=== PATIENT | female | born 1935 | race Caucasian/White ===

== ENCOUNTER → 2017-07-20 13:46 | Outpatient (CLI) | payer MEDICARE, BC ==
[2010-04-21 13:20] VITALS: BMI 20.7
== END | disposition home or self-care (01) ==
LOC: D.MRI 12:30
DX: R41.82 Altered mental status, unspecified (principal)

== ENCOUNTER → 2018-04-15 16:22 | Outpatient (CLI) | payer MEDICARE, BC ==
[2010-04-21 13:20] VITALS: BMI 20.7
== END | disposition home or self-care (01) ==
LOC: D.MRI 16:22
DX: M54.16 Radiculopathy, lumbar region (principal)

== ENCOUNTER 2018-10-25 10:39 | Emergency (ER) | payer MEDICARE, BC ==
[~2018-10-25] VITALS: Ht 154.9 cm; Wt 47.3 kg
[2018-10-25 10:42] VITALS: Ht 154.9 cm; Wt 47.3 kg
[2018-10-25] MEDS ORDERED: PROVENTIL/2.5 MG/3 M INH (10:46)
[2018-10-25] MEDS ORDERED: COMBIGAN OPHT DR5 ML EACH EYE (10:46)
[2018-10-25] MEDS ORDERED: BENADRYL25 MG PO (10:47)
[2018-10-25] MEDS ORDERED: LANOXIN125 MCG (10:47)
[2018-10-25] MEDS ORDERED: ADVAIR HFA 230-12 GM INH (10:47)
[2018-10-25] MEDS ORDERED: FOLIC ACID0.8 MG PO (10:48)
[2018-10-25] MEDS ORDERED: ISOSORBIDE DINI30 MG PO (10:48)
[2018-10-25] MEDS ORDERED: NITROSTAT0.4 MG SL (10:48)
[2018-10-25] MEDS ORDERED: SINGULAIR10 MG (10:48)
[2018-10-25] MEDS ORDERED: PRINIVIL20 MG (10:48)
[2018-10-25] MEDS ORDERED: PROTONIX40 MG PO (10:49)
[2018-10-25] MEDS ORDERED: SPIRIVA18 MCG INH (10:49)
[2018-10-25] MEDS ORDERED: VERELAN180 MG PO (10:49)
[2018-10-25] MEDS ORDERED: AMBIEN10 MG PO (10:49)
[2018-10-25 11:15] LABS: BASOPHILS 0.2 % (0-2); EOSINOPHILS 0 % (0-7); HEMATOCRIT 34.9 % (36.0-48.0); HEMOGLOBIN 11.5 g/dL (12-16); IMMATURE GRANULOCYTES 0.1 % (0-5); LYMPHOCYTES 12.9 % (15-50); MCH 29.5 pg (26.0-34.0); MCV 89.5 fL (80.0-100.0); MEAN PLATELET VOLUME 9.5 fL (7.4-10.4); MONOCYTES 6.9 % (2-11); NEUTROPHILS 79.9 % (40-80); PLATELET COUNT 222 10x3/uL (130-400); RDW 12.8 % (11.5-14.5); WBC 11.5 10x3/uL (4.8-10.8)
[2018-10-25 11:29] LABS: ALBUMIN 3.7 g/dL (3.4-5.0); ALKALINE PHOSPHATASE 32 U/L (46-116); ALT (SGPT) 10 U/L (10-68); BILIRUBIN - TOTAL 0.87 mg/dL (0.2-1.3); CALC OSMOLALITY 271 mosm/kg (275-300); CALCIUM 8.9 mg/dL (8.5-10.1); CARBON DIOXIDE 28.4 mmol/L (21.0-32.0); CHLORIDE - SERUM 98 mmol/L (98-107); CREATININE - SERUM 0.8 mg/dL (0.6-1.3); GLUCOSE 137 mg/dL (74-106); POTASSIUM - SERUM 3.8 mmol/L (3.5-5.1); PROTEIN - SERUM 7.7 g/dL (6.4-8.2); SODIUM 135 mmol/L (136-145); UREA NITROGEN 13 mg/dL (7-18); eGFR NON AFRICAN AMERICAN 73 mL/min (90-120)
[2018-10-25 11:35] LABS: AMYLASE - SERUM 103 U/L (25-115); LIPASE 291 U/L (73-393)
[2018-10-25 11:41] LABS: TROPONIN-I < 0.017 ng/mL (0.000-0.060)
[2018-10-25 16:16] LABS: APPEARANCE HAZY (CLEAR); BILIRUBIN NEGATIVE (NEGATIVE); COLOR YELLOW (YELLOW); GLUCOSE NEGATIVE (NEGATIVE); KETONE NEGATIVE (NEGATIVE); NITRITE POSITIVE (NEGATIVE); PROTEIN TRACE mg/dL (NEGATIVE); UROBILINOGEN NORMAL (NORMAL)
[2018-10-25 16:17] LABS: BACTERIA MANY /hpf (NONE SEEN); EPITHELIAL CELLS OCC /hpf (0-5); RED CELLS - URINE 0-5 /hpf (0-5); WHITE CELLS - URINE 25-50 /hpf (0-5)
[2018-10-25] MEDS ORDERED: MACROBID100 MG PO (16:30)
[2018-10-25] MEDS ORDERED: ZOFRAN8 MG PO (16:30)
[2018-10-25] MEDS ORDERED: KEFLEX500 MG PO (16:31)
[2018-10-25 17:33] VITALS: BP 106/74
== END 2018-10-25 17:34 | disposition home or self-care (01) ==
LOC: D.ER 10:39
PROVIDERS: Family Medicine
DX: R11.2 Nausea with vomiting, unspecified (principal); I25.10 Atherosclerotic heart disease of native coronary artery without angina pectoris; I10 Essential (primary) hypertension; N39.0 Urinary tract infection, site not specified; J44.9 Chronic obstructive pulmonary disease, unspecified; R00.1 Bradycardia, unspecified

== ENCOUNTER → 2019-03-05 08:03 | Outpatient (CLI) | payer MEDICARE, BC ==
[2018-10-25 10:42] VITALS: BMI 19.7
[~2019-03-05 08:03] MED LIST: ADVAIR HFA 230-12 GM INH; AMBIEN10 MG PO; BENADRYL25 MG PO; COMBIGAN OPHT DR5 ML EACH EYE; FOLIC ACID0.8 MG PO; ISOSORBIDE DINI30 MG PO; KEFLEX500 MG PO; LANOXIN125 MCG; MACROBID100 MG PO; NITROSTAT0.4 MG SL; PRINIVIL20 MG; PROTONIX40 MG PO; PROVENTIL/2.5 MG/3 M INH; SINGULAIR10 MG; SPIRIVA18 MCG INH; VERELAN180 MG PO; ZOFRAN8 MG PO
== END | disposition home or self-care (01) ==
LOC: D.RAD 08:03
PROVIDERS: ATTEND Internal Medicine Gastroenterology
DX: R10.10 Upper abdominal pain, unspecified (principal); R11.0 Nausea; R63.4 Abnormal weight loss

== ENCOUNTER 2020-11-23 10:00 | Inpatient (IN) | payer MEDICARE, BC ==
[~2020-11-23 10:00] MED LIST changes: +LEVOFLOXACIN500 MG PO; +PEPCID40 MG PO; +PHENERGAN25 M1 PO
[2020-11-23] MEDS ORDERED: PRAVASTATIN SOD10 MG PO (17:02)
[2020-11-23] MEDS ORDERED: BAYER CHEWABLE81 MG PO (17:03)
[2020-11-23] MEDS ORDERED: ISOSORBIDE MONO30 M1 PO (17:03)
[2020-11-23] MEDS ORDERED: MAG-OX 400 MG400 MG PO (17:03)
[2020-11-23] MEDS ORDERED: ULTRAM50 MG PO (17:04)
[2020-11-23] MEDS ORDERED: BENADRYL25 MG PO (17:04)
--- NOTE | 2020-11-23 18:32 | NUR ---
PT ADMITTED TO [facility] FOR AGGRESSION WITH FAMILY/ CAREGIVER. PT WAS COMBATIVE WITH FAMILY, SPITTING, THROWING ITEMS, YELLING, CUSSING AT CAREGIVERS, AND REFUSING MEDS. UPON ARRIVAL TO UNIT PT APPEARED ANXIOUS, DISRESPECTFUL, AND DEMANDING TO STAFF AT THIS TIME. PT BECOMES VERY TEARFUL WITH REDIRECTION PER STAFF. PT IS A DNR PER [facility]. CONSENT REC'D FROM [facility] CONTACT # [phone]. PT PCP IS DR. SNOWDEN. [facility]. PT WEARS OXYGEN AT 2L VIA N/C CONTINUOUSLY. FALL PRECAUTIONS IN PLACE.
[2020-11-23 19:47] VITALS: BP 204/108
--- NOTE | 2020-11-23 20:46 | NUR ---
RECEIVED IN HALLWAY. STANDING AT NURSES STATION. CONFUSED. AGITATION WITH HER SON FOR BEING HERE. CRYING AT TIMES. CALM AND COOPERATIVE WITH CARE AND ASSESSMENT. NO SIGNS OF AGGRESSION. RESTING QUIETLY IN BED AT THIS TIME. CONTINUE PLAN OF CARE.
[2020-11-23 22:24] VITALS: BP 204/108; BMI 16.3
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
[2020-11-24 07:41] LABS: BASOPHILS 0.6 % (0-2); EOSINOPHILS 0 % (0-7); HEMATOCRIT 37.4 % (36.0-48.0); IMMATURE GRANULOCYTES 0.3 % (0-5); LYMPHOCYTE ABS# 1.27 10x3/uL (1.18-3.74); LYMPHOCYTES 35.5 % (15-50); MCH 28.2 pg (26.0-34.0); MCHC 32.1 g/dL (31.0-37.0); MCV 87.8 fL (80.0-100.0); MEAN PLATELET VOLUME 9.1 fL (7.4-10.4); MONOCYTES 7.8 % (2-11); NEUTROPHILS 55.8 % (40-80); RBC 4.26 10x6/uL (4.00-5.40); RDW 13.4 % (11.5-14.5); WBC 3.6 10x3/uL (4.8-10.8)
[2020-11-24 07:56] LABS: PLATELET COUNT 242 10x3/uL (130-400)
[2020-11-24 08:23] LABS: BACTERIA FEW HPF (NONE SEEN); BILIRUBIN NEGATIVE (NEGATIVE); KETONE NEGATIVE (NEGATIVE); NITRITE NEGATIVE (NEGATIVE); SQUAMOUS EPITHELIAL 0-5 HPF (0-4); UROBILINOGEN NORMAL mg/dL (< 2); WHITE CELLS - URINE 0-5 HPF (0-4)
[2020-11-24 08:42] LABS: ALBUMIN 3.8 g/dL (3.4-5.0); ALKALINE PHOSPHATASE 25 U/L (30-120); ALT (SGPT) 13 U/L (10-68); BILIRUBIN - TOTAL 0.59 mg/dL (0.2-1.3); CALC OSMOLALITY 279 mosm/kg (275-300); CALCIUM 8.9 mg/dL (8.5-10.1); CARBON DIOXIDE 30.7 mmol/L (21.0-32.0); CHLORIDE - SERUM 103 mmol/L (98-107); CHOL - HDL RATIO 2.9 ratio (2.3-4.1); CHOLESTEROL, TOTAL 185 mg/dL (0-200); CREATININE - SERUM 0.9 mg/dL (0.6-1.3); GLUCOSE 97 mg/dL (74-106); HDL CHOLESTEROL 63 mg/dL (32-96); LDL CHOLESTEROL 104 mg/dL (0-100); LDL-HDL RATIO 1.7 ratio (1.5-3.5); PROTEIN - SERUM 7.5 g/dL (6.4-8.2); SODIUM 140 mmol/L (136-145); THYROID STIMULATING HORMONE 3.37 uIU/mL (0.36-3.74); TRIGLYCERIDE 93 mg/dL (30-200); UREA NITROGEN 15 mg/dL (7-18); eGFR NON AFRICAN AMERICAN 63 mL/min (90-120)
--- NOTE | 2020-11-24 11:32 | NUR ---
PT SITTING IN CHAIR AT THIS TIME. PT IS CONFUSED AND ALERT TO SELF ONLY. REDIERCT AND REORIENT NEEDED. PT CONTS ON DROPLET PRECAUTIONS AWAITING COVID RESULTS. AMBULATES. REDIRECT AND REORIENT NEEDED. CONT TO EDUCATE ON DROPLET ISOLATIONS. RESTLESS NOTED. PT DID NOT UNDERSTAND WHY SHE WAS HERE AT ALL. CONT TO REDIRECT BEHAVIOR. MED COMPLIANT. WILL CONT PLAN OF CARE.
[2020-11-24 13:24] VITALS: Wt 40.6 kg
--- NOTE | 2020-11-24 15:44 | PSY ---
PATIENT NAME:BERNADINE NUNEZ MEDICAL RECORD: [id number] : 37 LOCATION:[facility] ADMISSION DATE: 11/23/20 ACCOUNT: [id number] PSYCHIATRIC EVALUATION DATE OF EVALUATION: 11/24/20 IDENTIFYING DATA: The patient is 85 years old and she is admitted to the hospital on a voluntary basis. CHIEF COMPLAINT: Aggression. HISTORY OF PRESENT ILLNESS: The patient has been aggressive with her family. They report that she has been spitting, cursing, throwing things and yelling at them. She has also been refusing to take her medications. She has no recollection of this and in fact becomes angry when asked about it. She clearly is impaired. PAST MEDICAL HISTORY: Significant for hypertension and coronary artery disease. PAST PSYCHIATRIC HISTORY: Unknown. The patient is clearly demented and this is not a new process, but at this point, I found nothing that indicates that she has an existing diagnosis of dementia. FAMILY HISTORY: Unknown. ALLERGIES: SULFA. CURRENT MEDICATIONS: Aspirin, Calan, isosorbide mononitrate. SOCIAL HISTORY: The patient is . She was for 30 years and has had 2 husbands. She has 3 children. She did not graduate from high school. She has no history of drug or alcohol abuse, although she is a former cigarette smoker. She has a relationship with a boyfriend that recently ended. MENTAL STATUS EXAMINATION: The patient is awake, alert and oriented to person and place, but not to time or situation. Her mood is flat. Her affect is constricted. Thought processes are circumstantial. Memory, concentration and abstraction abilities are impaired. She denies intent to harm herself or others as well as psychotic symptoms. ASSESSMENT: AXIS I: Major vascular neurocognitive disorder. AXIS II: None. AXIS III: Chronic obstructive pulmonary disease, hypertension and coronary artery disease. AXIS IV: Moderate. AXIS V: Global assessment of functioning is 30. PLAN: At this time, the patient is admitted to the hospital for comprehensive medical, psychological, and social evaluation. She will be treated with both mood stabilizing and memory enhancing medications. Her long-term prognosis is guarded. TRANSINT:[id number] Voice Confirmation ID: [id number] DOCUMENT ID: [id number] YESICA FARR MD at 1544 CC: [id number] DICTATION DATE: 11/24/20 1529 CERAMICS TEACHER: 11/24/20 1543 ADM IN [facility] [address] [id number]
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
[2020-11-24 20:00] VITALS: BP 165/82
--- NOTE | 2020-11-24 21:40 | NUR ---
B) Patient is alert and oriented to person, calm and cooperative this shift, I) Administered scheduled medications as ordered, monitored for safety, isolation awaiting test results, R) Medication compliant, resting quietly now, P) Continue plan of care.
[2020-11-25 07:15] LABS: RAPID PLASMA REAGIN Non Reactive (Non Reactive)
[2020-11-25 09:43] VITALS: BP 138/87
--- NOTE | 2020-11-25 14:20 | NUR ---
pt sitting in chair at this time. pt was crying when nurse was in room. nurse redirected pt behaviors and put o2 back in place. pt conts on O2 at 2.5 LPM via N/C. lung sounds wheezes noted. pt is calm and cooperative with staff. confusion noted. redirect and reorient as needed. conts on droplet precautions per isolation. pt does not understand isolation precautions due low congitive understanding. cont to redirect wearing mask and staying in room. compliant with meds, vitals and assessments. can make needs known. will cont plan of care.
--- NOTE | 2020-11-25 16:34 | NUR ---
PT SON CALLED ALICIA. PASSCODE GIVEN. HE WANTED TO KNOW IF HE MADE THE RIGHT DECISION TO BRING HER IN WHEN I DID. I FEEL BAD FOR BRINGING HER IN. NURSE AGREED THAT IT WAS THE RIGHT TIME. SOMETIMES THEY NEED HELP WHEN THEY CAN NOT BE MANAGED AT HOME. IT WAS THE RIGHT TIME TO BRING HER IN. HE ASKED FOR AN UPDATE. NURSE GAVE AN UPDATE. PT WAS TEARFUL AT TIMES. HE STATED SHE WAS THAT WAY AT HOME. HE STATED HE WOULD CALL HER LATER THIS AFTERNOON. HE STATED WELL CAN I CALL HER OR WOULD IT UPSET HER." NURSE STATED WE USUALLY ASKED FOR THE FIRST WEEKEND NO CONTACT TO AVOID UPSETTING PT AND ALLOW HER TO SETTLE IN A BIT. VERBALIZIED UNDERSTANDING.
[2020-11-25 20:00] VITALS: BP 141/80
--- NOTE | 2020-11-25 22:22 | NUR ---
B) Patient is alert and oriented to person, calm and cooperative this shift, I) Administered scheduled medications as ordered, monitored for safety, isolation protocols, R) Mediation compliant, resting quietly in bed now, P) Continue plan of care.
[2020-11-26 09:02] VITALS: BP 149/54
--- NOTE | 2020-11-26 16:13 | NUR ---
PT SOCIALIZING WITH PEERS AT THIS TIME. PT IS CALM AND COOPERATIVE. PT IS CONFUSED AND DISORIENTED TO PLACE, TIME AND SITUATION. REDIRECT AND REORIENT NEEDED. PT COVID RESULTS NEGATIVE. PT CONTS ON O2 CONTS AT 2 LPM VIA N/C. PT IS COMPLIANT WITH MEDS, VITALS AND ASSESSMENTS. AMBULATES. CAN MAKE NEEDS KNOWN. WILL CONT PLAN OF CARE.
[2020-11-26 20:00] VITALS: BP 112/60
--- NOTE | 2020-11-26 22:19 | NUR ---
PT IS ALERT AND ORIENTED TO SELF. SHE IS COMPLIANT WITH HS MEDICATIONS. EASY TO REDIRECT. RECEIVED IN BED IN HER ROOM. O2 AT 2.5 L VIA NC. SHE IS ISOLATED AND WITHDRAWN. MONITOR FOR SAFETY.
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
[2020-11-27 09:51] VITALS: BP 126/53
--- NOTE | 2020-11-27 17:00 | NUR ---
The patient spoke to Dr. Solano and she asked if she may call her son, Dr. Solano asked me "How do they do that?" Let her know she has phone call times at 5:30 to 7:00 pm every day. The patient came to the desk and asked "That lady said I can call my son." Let her know that "Yes, ma'am you may call him at our specific phone call times." The patient verbalized understanding. She is confused and she told another patient that my son is more my brother." She also told Dr. Solano that she wanted to talk to her son then she said "I mean my brother, no my son."
--- NOTE | 2020-11-27 18:13 | NUR ---
Rec'd this am ambulatory . She wears O2 at 2 liters per NC. but will forget, take it off and then has to be redirected to sit down and put her 02 on. She demonstrates a slight aggression with statements at times but will usually can redirect.
[2020-11-27 20:00] VITALS: BP 98/45
--- NOTE | 2020-11-27 22:06 | NUR ---
PT IS ALERT AND ORIENTED TO SELF AND SITUATION. RECEIVED IN HALLWAY OUTSIDE OF THE NURSES STATION SOCIALIZING WITH PEERS. CALM AND COOPERATIVE WITH STAFF. PT USES O2 @2.5L VIA NC PRN. AMBULATES WITHOUT ASSIST. COMPLIANT WITH ALL MEDICATIONS. EASY TO REDIRECT.
[2020-11-28 08:00] VITALS: BP 147/64
--- NOTE | 2020-11-28 08:33 | NUR ---
The patient is awake and she is pleasant this am, she has not shown any aggression this am. She is not out of her room yet. She is on oxygen @ 2L/M per nc continuously, although, she forgets the oxygen and walks all around then she needs a reminder to put it back on as she gets out of breath. She does not know where she is or why she is here. Provide prescribed meds. She is compliant with meds. She ambulates, toilets, and feeds herself. Continue POC
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
--- NOTE | 2020-11-28 19:41 | NUR ---
RECEIVED IN HALLWAY OUTSIDE OF NURSES STATION. CALM AND COOPERATIVE WITH CARE AND ASSESSMENT. NO SIGNS OF AGGRESSION. REDIRECT AND REORIENT NEEDED. RESTING IN BED WITH EYES OPEN AT THIS TIME. CONTINUE PLAN OF CARE.
[2020-11-28 21:02] VITALS: BP 146/70
[2020-11-29 08:00] VITALS: BP 165/71
--- NOTE | 2020-11-29 12:09 | NUR ---
Nutrition Follow-up: Chart reviewed. Per [facility] notes patient is not eating well but does like Glucerna ONS. Diet: Diabetic + Glucerna TID PO intake: ~61% average x last 9 meals Last BM: 11/28/20. Wt: 84# (11/28/20); Admit Wt: 86# (11/23/20) Meds noted: megace. No new chem labs. Noted -2# weight loss since admit. Apparently PO intake has been varied and marginal. Recommend continue current diet and oral nutrition supplements. Recommend continued encouraged PO intake at meal times. Recommend continue appetite stimulant as medically feasible. RD will follow-up 12/01/20.
--- NOTE | 2020-11-29 14:13 | PN ---
PATIENT:BERNADINE NUNEZ MEDICAL RECORD: [id number] LOCATION:[facility] ADMISSION DATE: 11/23/20 PROGRESS NOTE DATE OF SERVICE: 11/25/2020 SUBJECTIVE: The patient's case was discussed with staff. She has no new complaint. OBJECTIVE: The patient is severely impaired cognitively, but she has not been aggressive today. ASSESSMENT: Dementia. PLAN: The patient is not eating adequately. She is significantly underweight. I am going to start her on Megace. TRANSINT:[id number] Voice Confirmation ID: [id number] DOCUMENT ID: [id number] YESICA FARR MD at 1413 CC: [id number] DICTATION DATE: 11/25/20 1542 LIVESTOCK HAULIER: 11/25/20 1655 ADM IN [place] [id number] [place] [id number]
--- NOTE | 2020-11-29 17:47 | NUR ---
RECEIVED IN PATIENT ROOM. COOPERATIVE WITH CARE AND ASSESSMENT. CONFUSED. VERY FORGETFUL. 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 ANXIOUS. EXIT SEEKING. REDIRECT AND REORIENT NEEDED. EATING AT THIS TIME. CONTINUE PLAN OF CARE.
--- NOTE | 2020-11-29 19:49 | NUR ---
RECEIVED IN BEDROOM. RESTING IN BED WITH EYES OPEN. VERY CONFUSED. CALM AND COOPERATIVE WITH CARE AND ASSESSMENT. CALM AND COOPERATIVE WITH CARE AND ASSESSMENT. NO SIGNS OF AGGRESSION. REDIRECT AND REORIENT NEEDED. CONTINUES TO REST QUIETLY IN BEDROOM. CONTINUE PLAN OF CARE.
[2020-11-29 22:19] VITALS: BP 152/77
[2020-11-30 08:00] VITALS: BP 124/42
--- NOTE | 2020-11-30 08:30 | NUR ---
RECEIVED IN PATIENT ROOM. CALM AND COOPERATIVE WITH CARE AND ASSESSMENT. NO AGGRESSIVE BEHAVIOR. REDIRECT AND REORIENT NEEDED. EATING BREAKFAST AT THIS TIME. CONTINUE PLAN OF CARE.
--- NOTE | 2020-11-30 15:12 | PN ---
PATIENT:BERNADINE NUNEZ MEDICAL RECORD: [id number] LOCATION:[facility] ADMISSION DATE: 11/23/20 PROGRESS NOTE DATE OF SERVICE: 11/29/2020 SUBJECTIVE: The patient's case was discussed with staff. She has no new complaint. OBJECTIVE: The patient is only oriented to person. Her mood is anxious. Her affect is constricted. Thought processes are circumstantial. Memory, concentration, and abstraction abilities are impaired. ASSESSMENT: Dementia. PLAN: The patient is going to be treated with Namenda at a slightly higher dose. She will be monitored for clinical changes associated with its use. It is clear she is going to require 24-hour day supervision. TRANSINT:[id number] Voice Confirmation ID: [id number] DOCUMENT ID: [id number] YESICA FARR MD at 1512 CC: [id number] DICTATION DATE: 11/29/20 1629 CREATIVE SERVICES COORDINATOR: 11/29/20 2302 ADM IN [place] [id number] [place] [id number]
--- NOTE | 2020-11-30 19:25 | NUR ---
RECEIVED IN HALLWAY SITTING OUTSIDE OF HER ROOM SOCIALIZING WITH PEERS. CALM AND COOPERATIVE WITH CARE AND ASSESSMENT. NO SIGNS OF AGGRESSION. REDIRECT AND REORIENT NEEDED. CONTINUES TO SOCAILIZE WITH PEERS. CONTINUE PLAN OF CARE.
[2020-11-30 19:30] VITALS: BP 126/62
--- NOTE | 2020-12-01 08:45 | NUR ---
RECEIVED IN PATIENT ROOM. SITTING ON SIDE OF BED. CALM AND COOPERATIVE WITH CARE AND ASSESSMENT. NO AGGRESSIVE BEHAVIOR. REDIRECT AND REORIENT NEEDED. EATING BREAKFAST AT THIS TIME. CONTINUE PLAN OF CARE.
--- NOTE | 2020-12-01 08:54 | NUR ---
Nutrition Reassessment/Follow-up: Overall PO intake remains about the same; ate 25-75% of meals yesterday. Diet: Diabetic, Glucerna TID PO intake: 61% avg x 9 meals Wt: 84# (11/28); 86# (11/23) Last BM: 12/01 No new labs Meds noted: Megace, vit D, MagOx -Nutrition needs unchanged. -Encourage PO intake and honor food preferences within diet restrictions. -Monitor wt. -RD will follow up within 5-7 days.
[2020-12-01 09:19] VITALS: BP 156/64
--- NOTE | 2020-12-01 13:46 | PN ---
PATIENT:BERNADINE NUNEZ MEDICAL RECORD: [id number] LOCATION:[facility] ADMISSION DATE: 11/23/20 PROGRESS NOTE DATE OF SERVICE: 11/30/2020 SUBJECTIVE: The patient's case was discussed with staff. She has no new complaint. OBJECTIVE: The patient is only oriented to person and place. She has very poor insight about her situation. She has not mentioned, her boyfriend in [place] today, which is an improvement, but I am sure she would become upset if I mentioned it to her. ASSESSMENT: Dementia. PLAN: At this time, I am going to maintain the patient on current medicines, which I have reviewed. Her prognosis is guarded and brief supportive and educational interventions were made. TRANSINT:[id number] Voice Confirmation ID: [id number] DOCUMENT ID: [id number] YESICA FARR MD at 1346 CC: [id number] DICTATION DATE: 11/30/20 1555 CLINICAL NURSING INTERN: 11/30/20 2216 ADM IN [place] [id number] [place] [phone]
--- NOTE | 2020-12-01 18:12 | NUR ---
PATIENT BECAME SLIGHTLY TEARFUL ON THE PHONE WITH HER SON BECAUSE SHE WANTED TO GO HOME TONIGHT. REPEATEDLY ASKING HIM WHEN HE WAS GOING TO COME GET HER. PATIENT TOLD SON TO FIND HER A BOYFRIEND AND HAVE HIM READY FOR HER WHEN SHE GETS HOME. TELLS HER SON THAT THE STAFF IS VERY NICE TO HER AND SHE LIKES THIS PLACE BUT SHE IS REALLY READY TO GET HOME.
[2020-12-01 21:30] VITALS: BP 106/51
--- NOTE | 2020-12-01 23:14 | NUR ---
B)RECEIVED PATIENT SITTING IN THE HALLWAY. CONFUSED AND DISORIENTED. PLEASANT AND SOCIAL WITH PEERS. PT WILL PULL OXYGEN OFF AT TIMES AND BECOMES SOB WITH EXERTION. CALM AND COOPERATIVE WITH STAFF. I)ADMINSITER MEDS AND MONITOR COMPLIANCE. REORIENT NEEDED. R)MED COMPLIANT. POOR REORIENTATION DUE TO IMPAIRED ABILITY TO RETAIN INFORMATION. REMAINS COOPERATIVE AND COMPLIANT WITH STAFF AND UNIT MILIEU. P)CONTINUE POC AND PROVIDE SAFE ENVIRONMENT.
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
[2020-12-02 08:00] VITALS: BP 154/80
--- NOTE | 2020-12-02 10:58 | PN ---
PATIENT:BERNADINE NUNEZ MEDICAL RECORD: [id number] LOCATION:[facility] ADMISSION DATE: 11/23/20 PROGRESS NOTE DATE OF SERVICE: 12/01/2020 SUBJECTIVE: The patient's case was discussed with staff. She has no new complaint. OBJECTIVE: The patient is in good behavioral control. She has poor insight about her situation. ASSESSMENT: Dementia. PLAN: The patient is eating and drinking well, although quite confused. She has not been agitated to any appreciable degree. I will maintain current medicines and it is clear she is going to require 24-hour a day supervision. TRANSINT:[id number] Voice Confirmation ID: [id number] DOCUMENT ID: [id number] YESICA FARR MD at 1058 CC: [id number] DICTATION DATE: 12/01/20 1526 HAIRCUTTER: 12/01/20 1531 ADM IN [place] [id number] [place] [phone]
--- NOTE | 2020-12-02 12:31 | NUR ---
PT IS ANXIOUS AT TIMES. PT NEEDS REMINDED TO NOT AMBULATE WITH OXYGEN TUBING DUE TO FALL RISK. FALL PRECAUTIONS IN PLACE. NO AGGRESSION NOTED. MEDICATIONS GIVEN ORDERED. WILL CONTINUE TO MONITOR AND CONTINUE WITH PLAN OF CARE.
[2020-12-02 20:07] VITALS: BP 145/67
--- NOTE | 2020-12-02 21:27 | NUR ---
PT IS ALERT AND ORIENTED TO SELF AND SITUATION. CALM AND COOPERATIVE WITH STAFF. RELATES APPRECIATION FOR STAFF. ABLE TO VOICE NEEDS AND WANTS. O2 AT 2.5L VIA NC. COMPLIANT WITH ALL MEDICATIONS. EASY TO REDIRECT.
--- NOTE | 2020-12-03 16:27 | NUR ---
Rec'd patient this am up in bed. She is on 02 at 2.5 liters o2 per NC. She has been in her room most of the day where she is on her 02. She occ. desats when off the 02 for any lenght of time. She has shown some aggression to other patients and wilbur. when she can't make her needs knowm. She had one episode where she was up, ambulating down the hallway and she stated she was dizzy. Staff checked her 02 sat and she was in her 80's but 02 was reapplied and 02 sat came up.
[2020-12-03 20:00] VITALS: BP 128/52
--- NOTE | 2020-12-04 00:56 | NUR ---
PT C/O PAIN IN BILATERAL HIPS CAUSING HER TO DRAW HER KNEES UP TO HER CHEST. TYLENOL 650MG GIVEN PO. PT IS MUMBLING TO NO ONE IN GERERAL.
[2020-12-04 08:00] VITALS: BP 124/59
--- NOTE | 2020-12-04 11:05 | NUR ---
The patient is awake, she is very confused and nonsensical. When this nurse went into her room to assess her, she had her O2 off, assisted her to put it back on and she got up and used the bathroom and then she ate. She is pleasant but has poor insight into her situation. Provide prescribed meds. The patient is compliant with meds. Continue POC.
--- NOTE | 2020-12-04 16:27 | NUR ---
The patient keeps taking off her oxygen and walking around, she doesn't understand that she needs to keep it on at all times. She gets more confused without her oxygen on and short of breath. Continue to monitor.
--- NOTE | 2020-12-04 17:53 | NUR ---
PT CAME UP TO NURSES STATION AT THIS TIME WITH SLIGHT SHORTNESS OF BREATH STATING SHE NEEDS HER INHAILER. PT WALKED BACK TO ROOM AND OXYGEN PLACED TO PT AT 2.5L; AFTER SITTING FOR A FEW MINUTES HER BREATHNG WAS MORE AT EASE WITH RR 21 PER MIN AND OXYGEN SATURATION 97% ON THE 2.5L NC. PT ENCOURAGED TO TAKE SLOW DEEP BREATHS IN NOSE AND OUT MOUTH. ALSO AT THIS TIME CALLED FRANCO WEN, REGARDING THIS AND UPDATED. PRN ORDER RECIEVED FOR ALBUTEROL 2 PUFF PRN. VSS. WILL CONTINUE TO OBSERVE.
[2020-12-04 20:00] VITALS: BP 132/62
--- NOTE | 2020-12-04 22:57 | NUR ---
RECEIVED PATIENT ON UNIT. SHE IS CONFUSED, VERY ANXIOUS, DURING PHONE TIME SHE WAS ASKING HER FAMILY TO COME AND GET HER. SHE DID CALM DOWN AND GO TO BED EVENTUALLY. COMPLIANT WITH HER MEDS. SHE IS LABILE. WILL FOLLOW POC
[2020-12-05 12:21] VITALS: BP 116/59
--- NOTE | 2020-12-05 17:22 | NUR ---
RECEIVED IN HALLWAY OUTSIDE OF NURSES STATION. ANXIOUS. AGIATED. VERY SPORADIC AND DISORGANIZED. YELLING AT STAFF. ACCUSING STAFF OF SPREADING RUMORS ABOUT HER. ACCUSING STAFF OF HOLDING HER HOSTAGE. YELLING AT EVS FOR CLEANING. REDIRECT AND REORIENT NEEDED. WAITING FOR DINNER TRAY TO ARRIVE AT THIS TIME. CONTINUE PLAN OF CARE.
--- NOTE | 2020-12-05 20:24 | NUR ---
RECEIVED IN BEDROOM. RESTING IN BED WITH EYES CLOSED. RESPONDS TO VOICE. CALM AND COOPERATIVE WITH CARE AND ASSESSMENT. CONFUSED. NO SIGNS OF AGGRESSION. REDIRECT AND REORIENT NEEDED. TALKING WITH MHT IN HER ROOM AT THIS TIME. CONTINUE PLAN OF CARE.
[2020-12-05 20:47] VITALS: BP 125/45
[2020-12-06 08:16] VITALS: BP 110/54
--- NOTE | 2020-12-06 09:31 | NUR ---
SW SPOKE TO PT'S SON, ALICIA, ABOUT PT'S DISCHARGE PLAN. SW WENT OVER DIFFERENT LEVELS OF CARE, DISEASE PROGRESSION, PT'S CONDITION, AND PT NEEDING 24/7 SUPERVISION. SHERMAN DISCUSSED POWER ASSISTED LIVING AND THE [facility]. SHERMAN DID A REFERRAL TO [facility] AT THE REQUEST OF SON. SHERMAN WILL ALSO TALK TO MD ABOUT DOING COMPETENCY LETTER SO SON'S POA CAN TAKE EFFECT. ALICIA VOICED NO OTHER NEEDS AT THIS TIME, EXPRESSED GRATITUDE AND UNDERSTANDING OF DISCUSSION.
--- NOTE | 2020-12-06 15:12 | PN ---
PATIENT:BERNADINE NUNEZ MEDICAL RECORD: [id number] LOCATION:[facility] ADMISSION DATE: 11/23/20 PROGRESS NOTE DATE OF SERVICE: 12/02/2020 SUBJECTIVE: The patient's case was discussed with staff. She has no new complaint. OBJECTIVE: The patient denies intent to harm herself or others. She participates in treatment well, but is only oriented to person. She has almost no insight about her cognitive decline. ASSESSMENT: Dementia. PLAN: Supportive and educational interventions were made. Current medications have been reviewed and will be maintained. TRANSINT:[id number] Voice Confirmation ID: [id number] DOCUMENT ID: [id number] YESICA FARR MD at 1512 CC: [id number] DICTATION DATE: 12/02/20 1635 INVAS TECH: 12/02/20 1655 ADM IN [place] [id number] [place] [id number]
--- NOTE | 2020-12-06 17:30 | NUR ---
RECEIVED IN PATIENT ROOM. SITTING ON SIDE OF BED. CALM AND COOPERATIVE WITH CARE AND ASSESSMENT. YELLS OUT AT TIMES. HALLUCINATING AND TALKING TO UNSEEN OTHERS. REDIRECT AND REORIENT NEEDED. EATING DINNER AT THIS TIME. CONTINUE PLAN OF CARE.
--- NOTE | 2020-12-06 19:45 | NUR ---
RECEIVED IN BEDROOM. RESTING IN BED WITH EYES CLOSED. REPONDS TO VOICE. CALM AND COOPERATIVE WITH CARE AND ASSESSMENT. NO SIGNS OF AGGRESSION. REDIRECT AND REORIENT NEEDED. CONTINUES TO REST QUIETLY IN BED. CONTINUE PLAN OF CARE.
[2020-12-06 20:17] VITALS: BP 136/43
--- NOTE | 2020-12-07 04:17 | NUR ---
PT REFUSED BREATHING TREATMENT THIS MORNING. VERY DISTRESSED ABOUT RT COMING IN. YELLED AT HIM TO LEAVE. REDIRECTED AND PT WENT BACK TO BED.
[2020-12-07 08:00] VITALS: BP 146/74
--- NOTE | 2020-12-07 14:08 | PN ---
PATIENT:BERNADINE NUNEZ MEDICAL RECORD: [id number] LOCATION:[facility] ADMISSION DATE: 11/23/20 PROGRESS NOTE DATE OF SERVICE: 12/06/2020 SUBJECTIVE: The patient's case was discussed with staff. She has no new complaint. OBJECTIVE: The patient is in good behavioral control with poor insight about her situation. She is saying that she wants to just lie in the bed and today. ASSESSMENT: Dementia. PLAN: I am going to start the patient on an antidepressant. She will be monitored for clinical changes associated with its use. TRANSINT:[id number] Voice Confirmation ID: [id number] DOCUMENT ID: [id number] YESICA FARR MD at 1408 CC: [id number] DICTATION DATE: 12/06/20 1557 AUTOMOTIVE BUYER: 12/06/20 2308 ADM IN [place] [id number] [place] [id number]
--- NOTE | 2020-12-07 17:41 | NUR ---
Received patient in bed with eyes closed. Responds to verbal stimuli. Calm and cooperative with assessment at this time. Patient is alert to person only. Patient continues to remove O2 during shift. Patient redirected to reapply O2. Patient has little to no insight into his situation. Patient can become easily agitated with staff upon redirection at times. Patient continues to pace the unit without oxygen on. Staff attempted to redirect patient back to room to apply oxygen to maintain O2 sats. Redirect and reorient as needed. Fall precautions in place for safety. Will continue plan of care.
[2020-12-07 20:00] VITALS: BP 105/57
--- NOTE | 2020-12-07 20:11 | NUR ---
RECEIVED IN BEDROOM. RESTING QUIETLY INBED WITH EYES CLOSED. RESPONDS TO VOICE. CALM AND COOPERATIVE WITH CARE AND ASSESSMENT. NO SIGNS OF AGGRESSION. REDIRECT AND REORIENT NEEDED. CONTINUES TO REST QUIETLY IN BED. CONTINUE PLAN OF CARE.
[2020-12-08 07:59] VITALS: BP 126/58
--- NOTE | 2020-12-08 08:27 | PN ---
PATIENT:BERNADINE NUNEZ MEDICAL RECORD: [id number] LOCATION:[facility] ADMISSION DATE: 11/23/20 PROGRESS NOTE DATE OF SERVICE: 12/07/2020 SUBJECTIVE: The patient's case was discussed with staff. She has no new complaint. OBJECTIVE: The patient is only oriented to person. She has been angry and accusing the staff of stealing things from her. She has not mentioned wanting to anymore. She is intermittently yelling out in distress, but then when asked is wrong she calms and says nothing. ASSESSMENT: Dementia. PLAN: The patient's medicines have been reviewed. I am going to increase her BuSpar to 10 mg twice daily. TRANSINT:[id number] Voice Confirmation ID: [id number] DOCUMENT ID: [id number] YESICA FARR MD at 0827 CC: [id number] DICTATION DATE: 12/07/20 1539 HAND TENNIS BALL COVERER: 12/07/20 2303 ADM IN [place] [id number] [place] [id number]
--- NOTE | 2020-12-08 11:12 | NUR ---
Nutrition Re-Assessment Diet: Diabetic + Glucerna TID PO intake: ~59% average x last 9 meals Last BM: 12/01/20 x 7 days now Wt: 88.2# (12/05/20); Admit Wt: 86# (11/23/20) Meds noted: megace, magox. No new chem labs. Estimated nutrition needs: 1200-1450kcal (25-30 IBW), 48-57gms protein (1-1.2gms/kg), 1000-1175mL fluid (or per MD) Nutrition diagnosis: Underweight r/t presumably h/o inadequate energy intake AEB BMI 16.7. Goals: -PO intake =/>75% meals and snacks (not meeting) -Meet fluid needs (progressing) -Weight trend up ~1-2#/week until BMI nearer WNL (progressing) Recommendations: -Recommend MD to consider liberalizing diet to regular. -Will continue to honor food preferences within diet restrictions. -Continue oral nutrition supplements TID. -Recommend continue encouraged PO intake at meal times. -Recommend MD to consider adding bowel regiment to promote BM regularity and hopefully help increase appetite some. -RD will continue to monitor PO intake and wt trend. -RD will follow-up within 7 days.
--- NOTE | 2020-12-08 15:34 | NUR ---
Rec' patient up this am in the hallway. She is on 2/5liters of oxygen continuous. She is A/O times times 1 to person. She has been calm and cooperative for most of the day but at times she can laugh out loud with minimal stiulation. She is med compliant and takes her meds whole. She must be directed and redirected often. She participated in group therapy and activities today.
[2020-12-08 20:00] VITALS: BP 114/38
--- NOTE | 2020-12-09 02:05 | NUR ---
RECEIVED PATIENT AT NURSE'S STATION, SHE WAS VERY UPSET, AGITATED, CURSING, BECAUSE SHE WAS ASKED TO GO BACK TO HER ROOM AND GET BACK ON HER OXYGEN. ATIVAN IM GIVEN @ 2000, TOLERATED WELL AND WAS EFFECTIVE.
--- NOTE | 2020-12-09 08:54 | PN ---
PATIENT:BERNADINE NUNEZ MEDICAL RECORD: [id number] LOCATION:[facility] ADMISSION DATE: 11/23/20 PROGRESS NOTE DATE OF SERVICE: 12/08/2020 SUBJECTIVE: The patient's case was discussed with staff. She has no new complaint. OBJECTIVE: The patient is oriented to person only. She has been cooperative, but quite confused. She has not been yelling out today and has not made any statements about wanting to . ASSESSMENT: Dementia. PLAN: Current medicines have been reviewed and will be maintained. Brief supportive and educational interventions were made. TRANSINT:[id number] Voice Confirmation ID: [id number] DOCUMENT ID: [id number] YESICA FARR MD at 0854 CC: [id number] DICTATION DATE: 12/08/20 170 OFFICE MACHINE EMBOSSOGRAPH OPERATOR: 12/09/20 0120 ADM IN [place] [id number] [place] [id number]
[2020-12-09 10:14] VITALS: BP 139/80
[2020-12-09 10:27] VITALS: BP 139/51
--- NOTE | 2020-12-09 17:35 | NUR ---
PT SPOKE WITH GRANDDAUGHTER AT THIS TIME. PASSCODE GIVEN. SHE SPOKE WITH HER AT THIS TIME.
--- NOTE | 2020-12-09 17:50 | NUR ---
PT LAYING IN BED AT THIS TIME STATING SHE DID NOT FEEL WELL. PT IS CONTS O2 AT 2.5 LPM VIA N/C. PT DOES REMOVE O2 AT TIMES. CONT TO MONITOR AND EDUCATE ON NEED FOR OXYGEN. PT IS ALERT TO SELF ONLY. CAN MAKE SOME NEEDS KNOWN. NO WANDERING NOTED. NO COMBATIVE BEHAVIOR NOTED. COMPLIANT WITH MEDS, VITALS AND ASSESSMENTS. BED ALARM IN PLACE AND ACTIVE. WILL CONT PLAN OF CARE.
[2020-12-09 20:00] VITALS: BP 136/62
--- NOTE | 2020-12-10 03:04 | NUR ---
B) Patient is alert and oriented to self, confused and asked this nurse why I was helping her, unaware of where she is of her situation, I) Administered scheduled medications as ordered, monitored for needs, R) Mediation compliant, sleeping quietly , compliant with keeping her nasal canula on this shift, P) Continue plan of care.
--- NOTE | 2020-12-10 07:20 | NUR ---
mht asked nurse to come into the room to assess pt breathing status. pt was shallow breathing, minually responsive, pupils dilated, stable vitals, warm to the touch. nurse checked o2 cannula connected to wall hub. Hub was not flowing properly. nurse obtained another hub this hub was leaking oxygen. nurse obtainted another hub and set pt oxygen to 2.5 l via N/C per order. Hub flowing correctly.Pt responded correctly within minutes. pt o2 sat WNL at this time. will cont to monitor pt O2 via N/C, updraft treatments as well.
[2020-12-10 11:37] VITALS: BP 144/52
--- NOTE | 2020-12-10 13:18 | NUR ---
PT SITTING SOCALIZING AT THIS TIME. PT IS COMPLIANT WITH MEDS, VITALS AND ASSESSMENTS. PT CONTS ON 02 AT 2 LPM VIA N/C. PT CAN MAKE NEEDS KNONW. CONFUSION NOTED. REDIRECT AND REORIENT NEEDED. NO AGRESSIVE BEHAVIOR NOTED. AMBULATES. WILL CONT PLAN OF CARE.
--- NOTE | 2020-12-10 15:50 | NUR ---
pt sitting socializing at this time. pt o2 sat on room air is 90%. no SOB noted. will cont to monitor
[2020-12-10 20:00] VITALS: BP 105/51
--- NOTE | 2020-12-10 22:34 | NUR ---
PT IS ALERT AND ORIENTED TO SELF AND SITUATION. SHE IS UPSET THAT ANOTHER PATIENT KEEPS COMING INTO HER ROOM AND ATTEMPTS TO TAKE HER BELONGINGS. SHE CONFRONTED THE PATIENT AND STAFF REDIRECTED HER TO HER ROOM. PT APPOLOGIZED FOR GETTING UPSET BUT RELATES THAT IT IS VERY FRUSTRATING TO HAVE TO HIDE ALL HER BELONGINGS IN HER ROOM. COMPLIANT WITH ALL MEDICATIONS. EASY TO REDIRECT. PT O2 @2.5L VIA NC. COOPERATIVE AND PLEASANT WITH STAFF. ABLE TO VOICE NEEDS AND WANTS. MONITOR FOR SAFETY.
[2020-12-11 08:14] VITALS: BP 111/54
--- NOTE | 2020-12-11 11:49 | NUR ---
The patient's son called and asked about any new medication changes. Let him know that the Nurse Practitioner has increased her seroquel at bedtime and it helps with her mood.
--- NOTE | 2020-12-11 12:24 | NUR ---
C/O "I CAN'T BREATH.WHEELED BACK TO HER ROOM AND 02AT 3L/MIN NC APPLIED.PULSE OX 92% ON 02.ATIVAN 0.5MG PO GIVEN FOR ANXIETY.
--- NOTE | 2020-12-11 13:00 | NUR ---
GOOD RESPONSE TO ATIVAN.ATE LUNCH AND IS RESTING QUIETLY NOW.
[2020-12-11 20:00] VITALS: BP 110/54
--- NOTE | 2020-12-11 23:06 | NUR ---
PT IS ALERT AND ORIENTED TO SELF AND SITUATION. SHE IS RECEIVED IN HER ROOM EATING A SNACK. O2 @2.5L VIA NC. CALM AND COOPERATIVE WITH STAFF. RELATES THAT SHE IS TIRED AND SHE WANTS TO STAY IN HER ROOM TONITE. COMPLIANT WITH ALL MEDICATIONS. EASY TO REDIRECT. MONITOR. FOR SAFETY.
--- NOTE | 2020-12-12 07:37 | NUR ---
The patient is awake and she is in her room, she is still sleeping, she has O2 on at 2.5 L/M per NC. At this time she is not aggressive, she has poor insight into her situation, she has said "This place is nuts, and I am not nuts." She has word salad and it is difficult for her to communicate. Provide prescribed meds. The patient is compliant with meds. She ambulates, toilets, and feeds herself. Continue POC.
[2020-12-12 09:00] VITALS: BP 167/72
--- NOTE | 2020-12-12 19:34 | NUR ---
RECEIVED IN BEDROOM. RESTING IN BED WITH EYES CLOSED. RESPONDS TO VOICE. CALM AND COOPERATIVE WITH CARE AND ASSESSMENT. NO SIGNS OF AGGRESSION. REDIRECT AND REORIENT NEEDED. CONTINUES TO REST QUIETLY IN BED. CONTINUE PLAN OF CARE.
[2020-12-12 21:35] VITALS: BP 126/47
[2020-12-13 10:31] VITALS: BP 112/60
--- NOTE | 2020-12-13 13:41 | PN ---
PATIENT:BERNADINE NUNEZ MEDICAL RECORD: [id number] LOCATION:[facility] ADMISSION DATE: 11/23/20 PROGRESS NOTE DATE OF SERVICE: 12/09/2020 SUBJECTIVE: The patient's case was discussed with staff. She has no new complaint. OBJECTIVE: The patient is not compliant with medications. She is calm and cooperative. At times, she is agitated. ASSESSMENT: Dementia. PLAN: The patient has been encouraged to take her medications. She does not seem to have any concern about what she is taking and in fact, she says she will take her medicines, but she has had this before and then not done so. It is difficult to adjust her medications when she is not taking them consistently, but at least in this case for the time being, she is not seriously disruptive so I am not going to make an issue of it and we will just observe her for a day or two. TRANSINT:[id number] Voice Confirmation ID: [id number] DOCUMENT ID: [id number] YESICA FARR MD at 1341 CC: [id number] DICTATION DATE: 12/09/202018 JACQUARD LOOM CARPET WEAVER: 12/09/20 2236 ADM IN [place] [id number] [place] [address]
--- NOTE | 2020-12-13 17:45 | NUR ---
RECEIVED IN PATIENT ROOM. RESTING IN BED WITH EYES OPEN. CALM AND COOPERATIVE WITH CARE AND ASSESSMENT. NO AGGRESSIVE BEHAVIOR. REDIRECT AND REORIENT NEEDED. EATING DINNER AT THIS TIME. CONTINUE PLAN OF CARE.
--- NOTE | 2020-12-13 22:05 | NUR ---
RECEIVED IN BEDROOM. RESTING IN BED WITH EYES CLOSED. RESPONDS TO VOICE. CALM AND COOPERATIVE WITH CARE AND ASSESSMENT. VERY CONFUSED. NO SIGNS OF AGGRESSION. REDIRECT AND REORIENT NEEDED. RESTING IN BED WITH EYES CLOSED AT THIS TIME. CONTINUE PLAN OF CARE.
[2020-12-13 22:55] VITALS: BP 144/78
[2020-12-14 08:00] VITALS: BP 118/54
--- NOTE | 2020-12-14 13:17 | PN ---
PATIENT:BERNADINE NUNEZ MEDICAL RECORD: [id number] LOCATION:[facility] ADMISSION DATE: 11/23/20 PROGRESS NOTE DATE OF SERVICE: 12/13/2020 SUBJECTIVE: The patient's case was discussed with staff. She has no new complaint. OBJECTIVE: The patient is in good behavioral control with limited insight about her situation. She tolerates her medicines well. She is participating in treatment and she is keeping her oxygen on much more consistently than she was previously doing. TRANSINT:[id number] Voice Confirmation ID: [id number] DOCUMENT ID: [id number] YESICA FARR MD at 1317 CC: [id number] DICTATION DATE: 12/13/20 1618 HIMS MANAGER: 12/13/20 1740 ADM IN [place] [id number] [place] [address]
[2020-12-14 20:00] VITALS: BP 145/57
--- NOTE | 2020-12-15 08:34 | PN ---
PATIENT:BERNADINE NUNEZ MEDICAL RECORD: [id number] LOCATION:[facility] ADMISSION DATE: 11/23/20 PROGRESS NOTE DATE OF SERVICE: 12/14/2020 SUBJECTIVE: The patient's case was discussed with staff. She has no new complaint. OBJECTIVE: The patient is in good behavioral control with poor insight about her situation. ASSESSMENT: Dementia. PLAN: Current medicines have been reviewed and will be maintained. Long-term prognosis is guarded. I anticipate she can be transitioned out of the hospital soon. TRANSINT:[id number] Voice Confirmation ID: [id number] DOCUMENT ID: [id number] YESICA FARR MD at 0834 CC: [id number] DICTATION DATE: 12/14/20 1630 FLUXER: 12/14/[address] [facility] [address] [place] [address]
--- NOTE | 2020-12-15 12:30 | NUR ---
RECEIVED IN PATIENT ROOM. RESTING IN BED WITH EYES OPEN. CALM AND COOPERATIVE WITH CARE AND ASSESSMENT. NO AGGRESSIVE BEHAVIOR. REDIRECT AND REORIENT NEEDED. EATING LUNCH AT THIS TIME. CONTINUE PLAN OF CARE.
--- NOTE | 2020-12-15 14:00 | NUR ---
grout worker spoke to patient's son, Manav. grout worker was discussing discharge planning to [facility]. Rest he stated he is moving inpatient on Wednesday 12/20 and signing paperwork for [facility]. Patient will be ready to discharge Wednesday 12/20. No other needs voiced at this time. [facility] was patient's family's first choice.
--- NOTE | 2020-12-15 14:52 | NUR ---
Nutrition Re-Assessment Diet: Diabetic + Glucerna TID PO intake: ~60% average x last 9 meals Last BM: 12/15/20 Wt: 87# (12/12/20); Admit Wt: 86# (11/23/20) Meds noted: megace. No new chem labs. Estimated nutrition needs and nutrition diagnosis remain unchanged from initial nutrition assessment at this time. Patient is progressing towards meeting nutrition goals. Recommendations/Interventions: -Recommend continue current diet and oral nutrition supplements. Will continue to honor food preferences within diet restrictions. -Recommend continue appetite stimulant as medically feasible. -RD will continue to monitor PO intake and wt trend. -RD will follow-up within 7 days.
[2020-12-15 20:00] VITALS: BP 114/77
--- NOTE | 2020-12-16 00:32 | NUR ---
PT IS ALERT AND ORIENTED TO SELF ONLY. RECEIVED IN HER ROOM. O2 @2.5L VIA NC. CALM AND COOPERATIVE WITH STAFF. COMPLIANT WITH ALL MEDICATIONS. NO AGGRESSION NOTED. EASY TO REDIRECT.
[2020-12-16 09:37] VITALS: BP 151/96
--- NOTE | 2020-12-16 11:59 | PN ---
PATIENT:BERNADINE NUNEZ MEDICAL RECORD: [id number] LOCATION:[facility] ADMISSION DATE: 11/23/20 PROGRESS NOTE DATE OF SERVICE: 12/15/2020 SUBJECTIVE: The patient's case was discussed with staff. She has no new complaint. OBJECTIVE: The patient tolerates her medicines well. She has poor insight about her situation. She has been eating and sleeping well. ASSESSMENT: Dementia. PLAN: The patient is showing improvement and current medicines will be maintained. TRANSINT:[id number] Voice Confirmation ID: [id number] DOCUMENT ID: [id number] YESICA FARR MD at 1159 CC: [id number] DICTATION DATE: 12/15/20 1654 PRODUCTION SUPERINTENDENT HYDRO: 12/15/20 2325 ADM IN [place] [id number] [place] [address]
--- NOTE | 2020-12-16 17:20 | NUR ---
pt laying in bed at this time. pt is alert and oriented to person only. confusion noted. no agression noted. redirected and reorient as needed. conts on 02 at 2.5L via N/C. pt can make needs known. ambulates. pt eats well. bed alarm on and in place. will cont plan of care.
[2020-12-16 20:00] VITALS: BP 113/58
--- NOTE | 2020-12-16 22:10 | NUR ---
RECEIVED PATIENT IN HER ROOM, SHE HAD A BIG SMILE AND WAS VERY WELCOMING. PLEASANT, TOOK HER MEDS. SHE IS KEEPING HER OXYGEN ON. ABLE TO MAKE NEEDS KNOWN. WILL FOLLOW POC
[2020-12-17 14:13] VITALS: BP 131/54
--- NOTE | 2020-12-17 18:41 | NUR ---
Rec'd patient up this am lying in bed. up for am meal. She is A/O times 2 person and situation. She attended group/activities today and participated well. She took her meds whole and was med compliant. She has some issues with another patient that she does not like.
--- NOTE | 2020-12-17 18:57 | NUR ---
She has displayed very little aggression today. She can be directed and recdirected.
[2020-12-17 20:00] VITALS: BP 132/52
--- NOTE | 2020-12-18 02:47 | NUR ---
RECEIVED PATIENT IN HALLWAY VISTING WITH ANOTHER FEMALE RESIDENT. SHE IS CONFUSED, PLEASANT, ON OXYGEN. SHE IS NERVOUS ABOUT A MALE RESIDENT, HOWEVER, SHE IS AFRAID THAT HE IS GOING TO COME INTO HER ROOM (LEGITIMATE WORRY). SHE WAS ASSURED THAT THIS WOULD NOT HAPPEN. COMPLIANT WITH MEDS. WILL FOLLOW POC
[2020-12-18 09:16] VITALS: BP 107/53
--- NOTE | 2020-12-18 17:30 | NUR ---
ALERT, CALM, COOPERATIVE, TALKATIVE, NO AGGRESSION NOTED. MEDS ADMIN PER ORDERS WITH COMPLETE MED COMPLIANCE NOTED. DISCHARGE PLANNED FOR SUNDAY. CONTINUE PLAN OF CARE, MONITORING FOR INCREASED AGGRESSION.
--- NOTE | 2020-12-18 17:37 | NUR ---
PT REQUESTED TO SPEAK TO ALICIA AMOS AT THIS TIME.
[2020-12-18 20:00] VITALS: BP 115/47
--- NOTE | 2020-12-19 01:02 | NUR ---
PATIENT RECEIVED IN HER ROOM, ON OXYGEN 2.5 LITERS. PLEASANT, CONFUSED AND COMPLIANT WITH MEDS. ABLE TO MAKE HER NEEDS KNOWN. WILL FOLLOW POC
[2020-12-19] MEDS ORDERED: NAMENDA5 MG PO (09:59)
[2020-12-19] MEDS ORDERED: BUSPAR10 MG PO (09:59)
[2020-12-19] MEDS ORDERED: SEROQUEL25 MG PO (10:00)
[2020-12-19] MEDS ORDERED: ZOLOFT50 MG PO (10:00)
[2020-12-19 15:53] VITALS: BP 122/58
--- NOTE | 2020-12-19 17:45 | NUR ---
RECEIVED IN PATIENT ROOM. RESTING IN BED WITH EYES CLOSED. CALM AND COOPERATIVE WITH CARE AND ASSESSMENT. NO AGGRESSIVE BEHAVIOR. REDIRECT AND REORIENT NEEDED. EATING DINNER AT THIS TIME. CONTINUE PLAN OF CARE.
--- NOTE | 2020-12-19 20:13 | NUR ---
RECEIVED IN HALLWAY OUTSIDE OF NURSES STATION. SOCIALIZING WITH PEERS. CONFUSED. CALM AND COOPERATIVE WITH CARE AND ASSESSMENT. NO SIGNS OF AGGRESSION. REDIRECT AND REORIENT NEEDED. CONTINUE TO BE SOCAIL WITH PEERS AT TIMES. CONTINUE PLAN OF CARE.
--- NOTE | 2020-12-19 20:30 | NUR ---
RECEIVED IN HALLWAY. SITTING IN A CHAIR SOCIALIZING WITH PEERS. CALM AND COOPERATIVE WITH CARE AND ASSESSMENT. NO SIGNS OF AGGRESSION. REDIRECT AND REOREINT NEEDED. CONTINUES TO SIT IN HALLWAY WITH PEERS, SOCAILIZING. CONTINUE PLAN OF CARE.
[2020-12-19 22:24] VITALS: BP 110/51
[2020-12-20 08:00] VITALS: BP 143/68
[2020-12-20 12:47] LABS: SARS-CoV-2 ANTIGEN NEGATIVE- SARS-COV-2 (NEGATIVE)
--- NOTE | 2020-12-20 13:00 | NUR ---
PATIENT DISCHARGED TO [facility]. DISCHARGE PAPERWORK, NEGATIVE COVID ANTIGEN TEST RESULTS, AND SIGNED MEDICATION LIST FAXED TO [facility]. HARD COPY SENT WITH PATIENT. MEDICATIONS CALLED IN TO [facility]. PERSONAL BELONGINGS SENT WITH PATIENT.
--- NOTE | 2020-12-20 13:27 | PN ---
PATIENT:BERNADINE FORDE MEDICAL RECORD: [id number] LOCATION:[facility] ADMISSION DATE: 11/23/20 PROGRESS NOTE DATE OF SERVICE: 12/16/2020 SUBJECTIVE: Mrs. Forde is 85 years old and she has been calm and cooperative and without aggression over the past 24 hours. She is a high fall risk and she is sleeping and eating well. I have reviewed her medicines and will maintain them. ASSESSMENT: Dementia. PLAN: If this level of improvement continues, I think she can be transitioned out of the hospital Sunday. TRANSINT:[id number] Voice Confirmation ID: [id number] DOCUMENT ID: [id number] YESICA FARR MD at 1327 CC: [id number] DICTATION DATE: 12/16/20 184 COOPERAGE SHOP SUPERVISOR: 12/16/20 215 ADM IN [place] [id number] [place] [address]
== END 2020-12-20 13:00 | DRG 57 ==
LOC: D.PSYCH 10:00
PROVIDERS: ADMIT Psychiatry & Neurology Psychiatry; ATTEND Psychiatry & Neurology Psychiatry
DX: G30.1 Alzheimer's disease with late onset (principal); F02.81 Dementia in other diseases classified elsewhere, unspecified severity, with behavioral disturbance; Z20.822 Contact with and (suspected) exposure to COVID-19; I10 Essential (primary) hypertension; J44.9 Chronic obstructive pulmonary disease, unspecified; I25.10 Atherosclerotic heart disease of native coronary artery without angina pectoris; E55.9 Vitamin D deficiency, unspecified; E83.42 Hypomagnesemia; G89.29 Other chronic pain

== ENCOUNTER 2021-03-31 20:38 | Emergency (ER) | payer MEDICARE, BC ==
[~2021-03-31] VITALS: Ht 162.6 cm; Wt 44.5 kg
[~2021-03-31 20:38] MED LIST changes: +BAYER CHEWABLE81 MG PO; +BUSPAR10 MG PO; +ISOSORBIDE MONO30 M1 PO; +MAG-OX 400 MG400 MG PO; +NAMENDA5 MG PO; +PRAVASTATIN SOD10 MG PO; +SEROQUEL25 MG PO; +ULTRAM50 MG PO; +ZOLOFT50 MG PO
[2021-03-31 20:40] VITALS: Ht 162.6 cm; Wt 44.5 kg
[2021-03-31] MEDS ORDERED: HOME OXYGEN (21:57)
[2021-03-31 21:58] VITALS: BP 170/75
== END 2021-03-31 22:17 | disposition home or self-care (01) ==
LOC: D.ER 20:38
DX: S00.91XA Abrasion of unspecified part of head, initial encounter (principal); S09.90XA Unspecified injury of head, initial encounter; W19.XXXA Unspecified fall, initial encounter; Y93.9 Activity, unspecified; Y92.9 Unspecified place or not applicable; I10 Essential (primary) hypertension; Z86.73 Personal history of transient ischemic attack (TIA), and cerebral infarction without residual deficits; J44.9 Chronic obstructive pulmonary disease, unspecified